=== PATIENT | female | born 1965 | race Caucasian/White ===

== ENCOUNTER → 2016-06-26 | Outpatient (CLI) | payer BC ==
[~2016-06-26] MED LIST: AMB5 PO; CHOL400C10 PO; CYAN100T6 PO; MULT-506 PO; PRLSR20 PO; SERT-234 PO
--- NOTE | 2016-06-26 15:49 | DIAGNOSTIC IMAGING REPORT ---
LEFT FOOT 3 VIEWS CLINICAL HISTORY: Left foot pain. FINDINGS: 3 views of left foot are obtained. No prior studies are available for comparison at the time of dictation. The skeletal structures are well mineralized. No fracture is seen. Minimal degenerative change is noted at the first metatarsophalangeal joint. There are large dorsal and plantar calcaneal enthesophytes. Degenerative spurring is seen along the dorsal aspect of the tarsal bones. Mild soft tissue edema is suggested in the forefoot. IMPRESSION: 1. Mild soft tissue swelling is suggested in the forefoot. There is acute bony abnormality identified. 2. Minimal degenerative change and heel spurs as above. Electronically signed by: Anthony Lizarraga M.D. 06/26/2016 3:48 PM Dictated Date/Time: 06/26/2016 3:45 PM
== END | disposition home or self-care (01) ==
LOC: C.RDSM 08:00
PROVIDERS: ATTEND Family Medicine
DX: M79.671 Pain in right foot (principal)

== ENCOUNTER → 2016-07-13 | Outpatient (CLI) | payer BC ==
--- NOTE | 2016-07-13 14:27 | DIAGNOSTIC IMAGING REPORT ---
LEFT FOOT MIN 3 VIEWS CLINICAL HISTORY: LEFT FOOT PAIN pain COMPARISON: 06/26/2016 DISCUSSION: The bones and joint spaces appear intact. There is no evidence of fracture, dislocation or bony disease. There is no evidence for soft tissue swelling. Heel spur is present. IMPRESSION: Heel spur. Otherwise negative study Electronically signed by: Alejandro Bennett M.D. 07/13/2016 2:25 PM Dictated Date/Time: 07/13/2016 2:24 PM
== END | disposition home or self-care (01) ==
LOC: C.RDSM 14:39
PROVIDERS: ATTEND Family Medicine
DX: M79.672 Pain in left foot (principal); M77.32 Calcaneal spur, left foot

== ENCOUNTER → 2016-08-11 | Outpatient (CLI) | payer BC ==
--- NOTE | 2016-08-11 11:46 | DIAGNOSTIC IMAGING REPORT ---
LEFT FOOT MIN 3 VIEWS CLINICAL HISTORY: Left foot pain COMPARISON: 07/13/2016 DISCUSSION: No fractures or dislocations are visualized. There are no erosive or destructive changes. There is Achilles insertional spur and plantar calcaneal spur. IMPRESSION: Calcaneal spurring similar to the preceding study. No fractures identified. No evidence of erosive disease. Electronically signed by: Keo Collazo M.D. 08/11/2016 11:44 AM Dictated Date/Time: 08/11/2016 11:44 AM
== END | disposition home or self-care (01) ==
LOC: C.RDSM 11:26
PROVIDERS: ATTEND Family Medicine
DX: M79.672 Pain in left foot (principal); M77.32 Calcaneal spur, left foot

== ENCOUNTER → 2016-08-18 | Outpatient (CLI) | payer BC ==
--- NOTE | 2016-08-18 15:08 | DIAGNOSTIC IMAGING REPORT ---
MRI left foot LOWER EXT NON JOINT W/O CLINICAL HISTORY: LEFT FOOT PAIN pain TECHNIQUE: Multiaxial MRI acquisition COMPARISON STUDY: None FINDINGS: Unremarkable signal characteristics of the osseous structures throughout. No bone marrow replacing process. All major ligamentous and tendinous structures are intact. No abnormal mass or collection. The structures of the plantar fascia are unremarkable. IMPRESSION: Normal study Electronically signed by: Alejandro Bennett M.D. 08/18/2016 3:06 PM Dictated Date/Time: 08/18/2016 3:01 PM
== END | disposition home or self-care (01) ==
LOC: C.MRI 14:03
PROVIDERS: ATTEND Family Medicine
DX: M79.672 Pain in left foot (principal)